=== PATIENT | male | born 1965 | race Caucasian/White ===

== ENCOUNTER → 2016-11-27 | Outpatient (CLI) | payer OTHER ==
[~2016-11-27] MED LIST: ANDROGEL1.25 GM; FLONASE 0.05%50 MCG NASAL; MULTIVITAMINS PO; VITAMIN D1000 UNI1 PO; ZOCOR 10 MG TAB10 MG; ZPAK PO; ZYRTEC10 MG PO
== END ==
LOC: ULTRA 09:14
DX: M70.51 Other bursitis of knee, right knee (principal)